=== PATIENT | female | born 1965 ===

== ENCOUNTER 2020-08-14 09:45 | Inpatient (IN) | payer BC ==
[~2020-08-14] VITALS: Ht 162.6 cm; Wt 56.1 kg
[~2020-08-14 09:45] MED LIST: HYDACE5 PO; PROM25 PO; TRAM50 PO
[2020-08-14] MEDS ORDERED: MIRALAX17 GM PO (09:59)
[2020-08-14] MEDS ORDERED: Acetaminophen325 M1 PO (09:59)
[2020-08-14] MEDS ORDERED: NASAL SPRAY88 ML (10:00)
[2020-08-14] MEDS ORDERED: DEXA2 PO (10:01)
[2020-08-14 10:02] LABS: BASOPHILS ABSOLUTE AUTO 0.01 K/mm3 (0.00-0.23); BASOPHILS PERCENT AUTO 0 % (0-2); EOSINOPHILS PERCENT AUTO 0 % (0-6); Hematocrit 40.6 % (33.0-51.0); Hemoglobin 14.5 g/dL (11.5-16.0); IMMATURE GRAN ABSOLUTE AUTO 0.25 K/mm3 (0.00-0.10); IMMATURE GRAN PERCENT AUTO 2 % (0-1); LYMPHOCYTES ABSOLUTE AUTO 1.34 K/mm3 (0.84-5.20); LYMPHOCYTES PERCENT AUTO 13 % (21-46); MONOCYTES ABSOLUTE AUTO 0.87 K/mm3 (0.16-1.47); MONOCYTES PERCENT AUTO 8 % (4-13); Mean Corpuscular HGB Conc 35.7 g/dL (31.5-36.5); Mean Corpuscular Volume 92 fL (80-100); Mean Platelet Volume 9.2 fL (9.1-12.4); NEUTROPHILS ABSOLUTE AUTO 8.21 K/mm3 (1.96-9.15); NEUTROPHILS PERCENT AUTO 77 % (41-73); Platelet Count 390 K/mm3 (150-400); RDW Standard Deviation 40.4 fL (35.1-46.3); White Blood Cell Count 10.68 K/mm3 (4.00-11.30)
[2020-08-14] MEDS ORDERED: Cymbalta20 MG PO (10:02)
[2020-08-14] MEDS ORDERED: FOLI1 PO (10:03)
[2020-08-14] MEDS ORDERED: ASCO500 PO (10:03)
[2020-08-14] MEDS ORDERED: MULVITA PO (10:03)
[2020-08-14] MEDS ORDERED: ITRA100 PO (10:04)
[2020-08-14 10:27] LABS: Alanine Aminotransfer (ALT/SGP 16 U/L (12-78); Albumin, Blood 3.3 g/dL (3.4-5.0); Alk Phos 55 U/L (50-136); Anion Gap 10 mmol/L (6-16); Aspartate Aminotrans (AST/SGOT 8 U/L (12-37); Bilirubin, Total 0.6 mg/dL (0.1-1.0); Blood Urea Nitrogen 12 mg/dL (8-24); Bun/Creatinine Ratio 23.6 (12.0-20.0); CO2, Blood 22 mmol/L (21-32); Calcium, Blood 7.8 mg/dL (8.5-10.1); Chloride, Blood 87 mmol/L (98-108); Creatinine, Blood 0.51 mg/dL (0.40-1.00); Globulin, Blood 3.3 g/dL (2.2-4.0); Glomerular Filtration Rate >60 (60-); Glucose, Blood 162 mg/dL (70-99); Potassium, Blood 3.5 mmol/L (3.5-5.5); Sodium, Blood 119 mmol/L (136-145); Total Protein, Blood 6.6 g/dL (6.4-8.2)
[2020-08-14 11:47] LABS: Thyroid Stimulating Hormone 0.444 uIU/mL (0.360-4.800)
[2020-08-14] MEDS ORDERED: HYDCOR20 PO (12:49)
[2020-08-14] MEDS ORDERED: Hydroxychloroq200 MG PO (12:51)
[2020-08-14] MEDS ORDERED: SENNA LAXATIVE8.6 MG PO (13:13)
[2020-08-14] MEDS ORDERED: METTREX2.5 PO (13:15)
[2020-08-14] MEDS ORDERED: IMITREX50 M2 PO (13:17)
--- NOTE | 2020-08-14 14:47 | NUR ---
ADMIT TO ICU PT ADMITTED TO ICU FROM ER FOR HYPONATREMIA AT 1235. REPORT FROM IFEOMA GRANDA. PT S/P PITUITARY TUMOR REMOVAL AT [facility] ON 08/05/20. DAUGHTER AT BEDSIDE. REPORTS PT HAD DIFFICULTIES c HYPONATREMIA POST OP WELL. STATES SHE IS SCHEDULED TO HAVE STENTS REMOVED IN ONE WEEK. PT REPORTS DIZZINESS AND HOANG, BOTH SINCE POST OP DAY 1. PT SLOW TO RESPOND BUT A&O X 4. FOLLOWS SIMPLE COMMANDS. MAEW. VSS. REPEAT LABS DRAWN, 3% NACL ORDERED AND STARTED PER DR ANN. PLAN FOR REPEAT LABS 2 HOURS AFTER INFUSION STARTED. IV PATENT, PT DENIES TENDERNESS, NO SWELLING NOTED. WILL CONTINUE TO MONITOR.
--- NOTE | 2020-08-14 16:19 | NUR ---
REPORT TO AL GRANDA. DR ANN ROUNDED. 3% NACL CONTINUED AT 23 ML/HR, PENDING NA LAB RESULTS. VSS.
--- NOTE | 2020-08-14 18:57 | NUR ---
SHIFT SUMMARY... NO ACUTE NEGATIVE CHANGES NOTED SINCE ASSUMING CARE OF PT AT 1600. PT'S VS HAVE BEEN STABLE. PT'S DAUGHTER AT THE BEDSIDE. PT CONTINUES TO HAVE THE 3% SAILINE RUNNING PER ORDERS. PT IS TO HAVE ANOTHER SODIUM LAB DRAWN AT 1999, DR. ANN WOULD LIKE THE RN TO CALL AT 2099 WITH THE RESULTS OF THE 1999 LABS. PT WAS ABLE TO GET UP TO THE TOILET WITH SBA. PT IS TO HAVE A HEAD CT W/O CONTRAST IN THE AM. WILL CONTINUE TO MONITOR UNTIL REPORT IS GIVEN TO ONCOMING RN.
[2020-08-14 20:30] LABS: Anion Gap 6 mmol/L (6-16); Blood Urea Nitrogen 11 mg/dL (8-24); Bun/Creatinine Ratio 22.1 (12.0-20.0); CO2, Blood 24 mmol/L (21-32); Calcium, Blood 8.3 mg/dL (8.5-10.1); Chloride, Blood 100 mmol/L (98-108); Glomerular Filtration Rate >60 (60-); Glucose, Blood 152 mg/dL (70-99); Potassium, Blood 4.3 mmol/L (3.5-5.5); Sodium, Blood 130 mmol/L (136-145)
--- NOTE | 2020-08-14 20:40 | NUR ---
ASSUMPTION OF CARE PT RESTING COMFORTABLY IN BED. ALERT AND ORIENTED, NEURO CHECK DONE WITH DAYSHIFT RN DURING BEDSIDE REPORT, ASSESSMENT WNL. PT'S DAUGHTER IS CAREGIVER, WILL BE STAYING AT BEDSIDE T/O NIGHT. VSS, HR 65 SR ON MONITOR, SBP 120'S. WILL MONITOR SBP TO KEEP LESS THAN 140'S PER ORDERS. PT ABLE TO AMBULATE WITH SBA FOR TOILETING. URINE SAMPLE COLLECTED AND SENT TO LAB. PT COMPLAINING OF 6/10 HEADACHE, PRN TYLENOL PER EMAR. NEURO ASSESSMENT TO BE DONE Q4H, REPEAT HEAD CT IN AM.
--- NOTE | 2020-08-14 21:33 | NUR ---
CALL TO MD CALL TO DR ANN WITH NA LEVEL OF 130. SEE NEW ORDERS
[2020-08-14 22:59] LABS: Source, Urine Clean Catch
[2020-08-14 23:04] LABS: Bilirubin, Urine Neg (Neg); Blood, Urine Neg (Neg); Glucose Qualitative, Urine 1+ (Neg); Ketones, Urine Neg (Neg); Leukocyte Esterase, Urine Neg (Neg); Nitrite, Urine Neg (Neg); Protein, Urine Neg (Neg); Specific Gravity, Urine 1.005 (1.003-1.022); Urobilinogen, Urine NORM (Normal)
[2020-08-14 23:06] LABS: Appearance, Urine Clear (Clear); Color, Urine Yellow (P-Yellow)
--- NOTE | 2020-08-15 | NUR ---
UPDATE PT NEURO ASSESSMENT UNCHANGED. SBP 115-120'S. PT STILL COMPLAINING OF MILD HEADACHE, DECLINES NEED FOR ADDITIONAL INTERVENTIONS. WILL CONTINUE TO MONITOR.
[2020-08-15 03:05] LABS: Hematocrit 35.9 % (33.0-51.0); Hemoglobin 12.7 g/dL (11.5-16.0)
[2020-08-15 03:30] LABS: Albumin, Blood 2.8 g/dL (3.4-5.0); Anion Gap 5 mmol/L (6-16); Blood Urea Nitrogen 14 mg/dL (8-24); CO2, Blood 26 mmol/L (21-32); Calcium, Blood 7.9 mg/dL (8.5-10.1); Chloride, Blood 101 mmol/L (98-108); Creatinine, Blood 0.52 mg/dL (0.40-1.00); Glomerular Filtration Rate >60 (60-); Glucose, Blood 124 mg/dL (70-99); Magnesium, Blood 2.4 mg/dL (1.6-2.4); Phosphorus, Blood 2.5 mg/dL (2.5-4.9); Potassium, Blood 4.5 mmol/L (3.5-5.5); Sodium, Blood 132 mmol/L (136-145)
--- NOTE | 2020-08-15 03:45 | NUR ---
UPDATE PT NEURO ASSESSMENT UNCHANGED. SBP 115-120'S. PT UP TO BSC STEADY WITH SBA, DENIES ANY WEAKNESS.
--- NOTE | 2020-08-15 03:49 | NUR ---
UPDATE DR. ANN UPDATED REGARDING PT'S NA OF 132. NEW ORDERS PLACED.
--- NOTE | 2020-08-15 04:15 | NUR ---
PT TRANSPORTED TO/FROM CT VIA BED ON TRANSPORT MONITOR. VITALS REMAINED STABLE. TRIP UNEVENTFUL.
--- NOTE | 2020-08-15 05:52 | NUR ---
SHIFT SUMMARY PT ALERT AND ORIENTED T/O SHIFT, NO CHANGE IN NEURO STATUS. COMPLAINTS OF 6/10 HEADACHE PAIN, MILDLY RELIEVED BY TYLENOL. VSS, SBP <140, HR 60'S SR ON MONITOR. PT STEADY ON FEET WHEN UP TO BSC. TOLERATED TRANSPORT TO CT THIS AM. IV CURRENTLY SALINE LOCKED.
--- NOTE | 2020-08-15 08:00 | NUR ---
CARE ASSUMED FOR PATIENT, ASSESSMENT DONE, NEURO CHECKS COMPLETE, NO DEFICITS NOTED. DAUGHTER IN ROOM. BREAKFAST BROUGHT IN, HAD BEEN IN, ORDERS RECEIVED. PT AND DAUGHTER AWARE THAT FLUID RESTRICTION HAS BEEN IMPOSED. FLUIDS FROM BREAKFAST TRAY GIVEN TO DAUGHTER BY PATIENT. PT COMPLAINS OF HEADACHED, STATES IT IMPROVES FROM 8-9 TO ABOUT 4-5 WITH REGULAR TYLENOL. USING ICE PACK ON HER HEAD. LUNGS CLEAR, ABDOMEN SOFT, NON-TENDER, USES THE BR IN THE ROOM WITH ASSISTANCE. PT STATES FEELING BETTER THAN YESTERDAY.
--- NOTE | 2020-08-15 09:00 | NUR ---
MORNING MEDICATIONS GIVEN, PT TOLERATED WELL. COMPARED WITH HER LIST OF MEDS FROM HOME BY DAUGHTER. PT STATES SHE WOULD LIKE A SHOWER LATER AFTER A MORNING NAP.
--- NOTE | 2020-08-15 10:30 | NUR ---
DAUGHTER CURRENTLY WENT HOME TO GET CHANGE OF CLOTHES, WILL RETURN. PT APPEARS TO BE RESTING QUIETLY AT THIS TIME.
--- NOTE | 2020-08-15 12:25 | NUR ---
PT UP IN CHAIR, WORKING ON HER LUNCH TRAY. SHE WAS GIVEN SOME TYLENOL FOR HER HEADACHE. WAS IN, SPOKE WITH HER AT LENGTH. TRANSFERRING HER STATUS TO MEDICAL W/ NO TELE.
--- NOTE | 2020-08-15 13:50 | NUR ---
AFTER LUNCH, PT UP TO SHOWER ROOM, WALKED SLOWLY WITH ASSISTANCE. STATED SHE DID HAVE SOME DIZZINESS. HER DAUGHTER STAYED IN THE SHOWER ROOM WITH HER. SHE WALKED BACK TO HER ROOM, WALKED AROUND THE NURSES STATION AND TOLERATED WELL. SHE STOOD AND BRUSHED HER TEETH, HAD THE COBAN FROM HER IV'S REMOVED AND IS NOW BACK IN BED. SHE IS SMILING AND HAPPY, EVEN GIGGLED.
--- NOTE | 2020-08-15 17:24 | NUR ---
PT UP IN THE CHAIR FOR DINNER. HERE, SHE HAD BEEN SLEEPING SINCE 1510 TO 1657. SHE EXPRESSED THAT IS THE LONGEST SHE HAS SLEPT SINCE SHE HAS BEEN OUT OF SURGERY. SHE ALSO SAID HER HEAD IS FEELING MUCH BETTER AFTER A GOOD NAP. SHE HAS BEEN ASSIGNED ROOM 310, TOLD PT AND HER FAMILY. WILL GIVE REPORT TO NURSE WHEN AVAILABLE. SHE IS ENCOURAGED THAT SHE GETS TO WALK AROUND UPSTAIRS ON THE FLOOR THIS EVENING. TYLENOL GIVEN WITH HER DINNER.
--- NOTE | 2020-08-15 17:47 | NUR ---
REPORT GIVEN TO KALEE NARANJO ON MEDICAL FLOOR. WILL TRANSPORT AFTER PATIENT IS FINISHED WITH HER DINNER.
--- NOTE | 2020-08-15 18:12 | NUR ---
PT TAKEN UP TO ROOM 310, TRANSFERRED FROM W/C TO BED WITH SBA. MITCH TEE THERE TO TAKE OVER CARE OF THE PATIENT. NO QUESTIONS TO ANSWER, REPORT OF WHAT IS LEFT FOR HER FLUID RESTRICTION.
--- NOTE | 2020-08-15 18:17 | NUR ---
Assumed Care Received report from Xiomara, ICU-RN. Patient arrived via w/c with daughter and personal belongings. A/O. Self transferred to bed. Daughter claims to be support person, both patient and daughter requesting to stay the night, sightseeing guide Anita notified. C/O HOANG, ice pack to forehead. Settled to room, call light near, bed in lowest position. [facility].
[2020-08-16 05:00] LABS: Hematocrit 37.9 % (33.0-51.0)
[2020-08-16 05:22] LABS: Albumin, Blood 2.9 g/dL (3.4-5.0); Anion Gap 4 mmol/L (6-16); Blood Urea Nitrogen 17 mg/dL (8-24); Bun/Creatinine Ratio 30.1 (12.0-20.0); CO2, Blood 27 mmol/L (21-32); Calcium, Blood 8.4 mg/dL (8.5-10.1); Chloride, Blood 103 mmol/L (98-108); Creatinine, Blood 0.56 mg/dL (0.40-1.00); Glomerular Filtration Rate >60 (60-); Glucose, Blood 103 mg/dL (70-99); Magnesium, Blood 2.4 mg/dL (1.6-2.4); Phosphorus, Blood 2.7 mg/dL (2.5-4.9); Potassium, Blood 3.9 mmol/L (3.5-5.5); Sodium, Blood 134 mmol/L (136-145)
--- NOTE | 2020-08-16 05:46 | NUR ---
SHIFT SUMMARY PATIENT ALERT AND ORIENTED. WAS MEDICATED PER EMAR FOR PAIN. NO COMPLAINTS OF SHORTNESS OF BREATH. NO ACUTE ISSUES NOTED OVERNIGHT. IVS PATENT AND FLUSHED. BED IN LOWEST POSITION WITH WHEELS LOCKED. CALL LIGHT WITHIN REACH. REPORT GIVEN TO ONCOMING RN.
[2020-08-16] MEDS ORDERED: FURO20 PO (11:35)
[2020-08-16] MEDS ORDERED: POTA10T PO (11:36)
[2020-08-16] MEDS ORDERED: SODCHL1 PO (11:38)
--- NOTE | 2020-08-16 15:09 | NUR ---
1227 PT DISHCARGED HOME VIA PERSONAL VEHICLE ACCOMPANIED AND DRIVEN BY DAUGHTER. ESCORTED TO ENTRANCE VIA W/C BY THIS RN. IV'S REMOVED. D/C INSTRUCTIONS REVIEWED WITH PT AND DAUGHTER AND COPY PROVIDED. NEW RX FAXED TO [facility] PER PT REQUEST. PT WITH C/O OF H/A MANAGED WELL WITH PRN APAP. NO N/V, SOB. NO NEW CHANGES OR CONCERNS.
== END 2020-08-16 12:27 | disposition home or self-care (01) | DRG 644 ==
LOC: ER 09:45 → MEDS 12:17 → ICUW 12:17 → MEDS 08-15 18:00
PROVIDERS: Emergency Medicine; Internal Medicine Nephrology; Nurse Practitioner Acute Care; ADMIT Internal Medicine
DX: E22.2 Syndrome of inappropriate secretion of antidiuretic hormone (principal); E27.40 Unspecified adrenocortical insufficiency; M06.9 Rheumatoid arthritis, unspecified; N18.1 Chronic kidney disease, stage 1; E88.09 Other disorders of plasma-protein metabolism, not elsewhere classified; I95.9 Hypotension, unspecified; R51.9 Headache, unspecified; N28.9 Disorder of kidney and ureter, unspecified; R93.0 Abnormal findings on diagnostic imaging of skull and head, not elsewhere classified; R73.9 Hyperglycemia, unspecified; R56.9 Unspecified convulsions; Z79.899 Other long term (current) drug therapy; Z79.891 Long term (current) use of opiate analgesic; Z79.52 Long term (current) use of systemic steroids
CPT/HCPCS: 36415; 70450; 80048; 80053; 80069; 81003; 82533; 82570; 83605; 83735; 83930; 84295; 84300; 84443; 84550; 85014; 85018; 85025; 96360; 99285-25; A9270; J1650; J1720; J7030

== ENCOUNTER 2020-10-12 07:22 | Day surgery (SDC) | payer BC ==
[~2020-10-12] VITALS: Ht 162.6 cm; Wt 60.5 kg
[~2020-10-12 07:22] MED LIST changes: +ASCO500 PO; +Acetaminophen325 M1 PO; +Cymbalta20 MG PO; +DEXA2 PO; +FOLI1 PO; +FURO20 PO; +HYDCOR20 PO; +Hydroxychloroq200 MG PO; +IMITREX50 M2 PO; +ITRA100 PO; +METTREX2.5 PO; +MIRALAX17 GM PO; +MULVITA PO; +NASAL SPRAY88 ML; +POTA10T PO; +SENNA LAXATIVE8.6 MG PO; +SODCHL1 PO
[2020-10-12] MEDS ORDERED: EUTHYROX50 MCG PO (07:57)
== END 2020-10-12 09:44 | disposition home or self-care (01) ==
LOC: ORSCSDS 07:22
PROVIDERS: Student in an Organized Health Care Education/Training Program
PROC: 0DBK8ZX Excision of Ascending Colon, Via Natural or Artificial Opening Endoscopic, Diagnostic (ICD-10-PCS; principal; 2020-10-12 08:30)
PROC: 0DBN8ZX Excision of Sigmoid Colon, Via Natural or Artificial Opening Endoscopic, Diagnostic (ICD-10-PCS; principal; 2020-10-12 08:30)
DX: Z12.11 Encounter for screening for malignant neoplasm of colon (principal); K64.4 Residual hemorrhoidal skin tags; K57.30 Diverticulosis of large intestine without perforation or abscess without bleeding; Z79.899 Other long term (current) drug therapy
CPT/HCPCS: 88305; J2704; J7120